=== PATIENT | male | born 1970 | race African-American/Black ===

== ENCOUNTER → 2020-02-25 | Outpatient (CLI) | payer OTHER ==
[2015-04-22 17:09] VITALS: BP 173/96
[~2020-02-25] MED LIST: AMLO10TA8 PO; GLYB5TAB3 PO; HYDR12.575 PO; INSU100V31 SQ; INSU100V8 SQ; METF850T8 PO; NAPR-514 PO
== END | disposition home or self-care (01) ==
LOC: LAB 15:39
PROVIDERS: ATTEND Internal Medicine Gastroenterology
DX: Z01.812 Encounter for preprocedural laboratory examination (principal); R19.5 Other fecal abnormalities; Z20.828 Contact with and (suspected) exposure to other viral communicable diseases
CPT/HCPCS: U0003-CS

== ENCOUNTER → 2020-02-27 | Day surgery (SDC) | payer OTHER ==
[~2020-02-27] MED LIST changes: +IV RINGERS,LACTATED 1000ML 1,000 ML IV SCH; +PROPOFOL 10 MG/ML (20ML) VIAL. IV ONE
[2020-02-27 09:18] VITALS: BP 135/89
--- NOTE | 2020-02-29 16:07 | PATHOLOGY ---
[facility] Accession Number: [id number] . 01 Material submitted: . sigmoid colon - SIGMOID POLYP . 01 Clinical history: . SCREENING, HEME POSITIVE STOOLS . 02 Diagnosis: Colon biopsy, sigmoid polyp: - Tubular adenoma. (JPM:dalila 02/29/2020) QMS 02/29/2020 0856 Local . 02 Comment: There is no high grade dysplasia or evidence of malignancy. (JPM:dalila; 02/29/2020) . 02 Electronically signed: . Leno Duron MD, Pathologist NPI- [id number] . 01 Gross description: . The specimen is received in formalin, labeled "Jun Adal, sigmoid polyp". Received is a segment of pale ferreira soft tissue measuring 0.6 cm in maximum dimensions. The surgical margin is inked and the segment is bisected. The specimen is submitted entirely in cassette A1. (CAA; 02/28/2020) QA/QA 02/28/2020 1141 Local . 02 Pathologist provided ICD-10: D12.5 . 02 CPT . 719404 Specimen Comment: A courtesy copy of this report has been sent to [phone], [phone] Specimen Comment: [id number] Specimen Comment: Report sent to / DR NOYOLA Performed at: 01 [facility] [address], [place] [id number] MD Dylan Michelle MD Phone: [phone] Performed at: 02 [facility] [address], [place] [id number] MD Leno Duron MD Phone: [phone]
== END | disposition home or self-care (01) ==
LOC: ENDOS 07:20
PROVIDERS: ATTEND Internal Medicine Gastroenterology
DX: R19.5 Other fecal abnormalities (principal); K92.2 Gastrointestinal hemorrhage, unspecified; D12.2 Benign neoplasm of ascending colon; K21.9 Gastro-esophageal reflux disease without esophagitis; F17.210 Nicotine dependence, cigarettes, uncomplicated; Z79.899 Other long term (current) drug therapy
CPT/HCPCS: 45385; 88305; J2704; 45380